=== PATIENT | female | born 1975 | race African-American/Black ===

== ENCOUNTER 2018-03-25 10:46 | Inpatient (IN) | payer OTHER ==
[2018-03-25 11:33] VITALS: BMI 31.7
--- NOTE | 2018-03-25 13:43 | HP ---
COWS - Scale Resting Pulse: 1= [place] 81-100 Sweatin=Flushed/Facial Moisture Restless Observation: 1= Difficult to Sit Still Pupil Size: 2= Moderately Dilated Bone or Joint Aches: 2= Severe Diffuse Aches Runny Nose/ Eye Tearin= None GI Upset > 30mins: 2= Nausea/Diarrhea Tremor Observation: 1= Tremor [place], Not Seen Yawning Observation: 0= None Anxiety or Irritability: 2=Irritable/Anxious Goose Flesh Skin: 0=Smooth Skin COWS Score: 13 CIWA Score Nausea/Vomitin Muscle Tremors: 2 Anxiety: 3 Agitation: 2 Paroxysmal Sweats: 2 Orientation: 1-Uncertain about Date Tacttile Disturbances: 2-Mild Itch/Numbness/Burn Auditory Disturbances: 0-None Visual Disturbances: 0-None Headache: 2-Mild CIWA-Ar Total Score: 16 - Admission Criteria [facility] Guidelines: Admission for Medically Managed Detox: Requires at least one of the followin. CIWA greater than 12 2. Seizures within the past 24 hours 3. Delirium tremens within the past 24 hours 4. Hallucinations within the past 24 hours 5. Acute intervention needed for co occurring medical disorder 6. Acute intervention needed for co occurring psychiatric disorder 7. Severe withdrawal that cannot be handled at a lower level of care (continued vomiting, continued diarrhea, abnormal vital signs) requiring intravenous medication and/or fluids 8. Admission [facility] Chief Complaint: Heroin/Etoh withdrawal sx Allergies/Adverse Reactions: Allergies Allergy/AdvReac Type Severity Reaction Status Date / Time No Known Allergies Allergy Verified 03/25/18 12:02 History of Present Illness: PATIENT PRESENTS WITH HEROIN/ETOH WITHDRAWAL SX. THIS IS PATIENTS FIRST ADMISSION AT [facility] AND STATES SHE BEGAN SNIFFING HEROIN X ONE YEAR. SNIFFS 10 BAGS DAILY AND LAST TIME SHE SNIFFED WAS LAST NIGHT. PATIENT ALSO DRINKS 5 PINTS OF LIQUOR DAILY SINCE AGE 13. LAST DRINK WAS LAST NIGHT. DENIES H/O OVERDOSE, SEIZURES, BLACKOUTS AND FALL. PMH INCLUDES HTN, HIV+ AND ASTHMA. NON- COMPLIANT WITH ALL MEDS. DENIES SI/HI AND SUICIDE ATTEMPTS. Exam Limitations: No Limitations - Ebola screening Have you traveled outside of the country in the last 21 days: No Have you had contact with anyone from an Ebola affected area: No Have you been sick,other than usual withdrawal symptoms: No Do you have a fever: No - Review of Systems Constitutional: Chills, Night Sweats, Changes in sleep EENT: reports: No Symptoms Reported Respiratory: reports: No Symptoms reported Cardiac: reports: No Symptoms Reported GI: reports: Diarrhea, Nausea, Poor Fluid Intake, Abdominal cramping : reports: No Symptoms Reported Musculoskeletal: reports: Back Pain, Joint Pain, Muscle Pain Integumentary: reports: Sweating Neuro: reports: Headache, Numbness, Tingling, Tremors Endocrine: reports: No Symptoms Reported Hematology: reports: No Symptoms Reported Psychiatric: reports: Orientated x3, Anxious Patient History - Patient Medical History Hx Anemia: No Hx Asthma: Yes Hx Chronic Obstructive Pulmonary Disease (COPD): No Hx Cancer: No Hx Cardiac Disorders: No Hx Congestive Heart Failure: No Hx Hypertension: Yes (non compliant with meds.) Hx Hypercholesterolemia: No Hx Pacemaker: No HX Cerebrovascular Accident: No Hx Seizures: No Hx Dementia: No Hx Diabetes: No Hx Gastrointestinal Disorders: No Hx Liver Disease: No Hx Genitourinary Disorders: No Hx Sexually Transmitted Disorders: No Hx Renal Disease (ESRD): No Hx Thyroid Disease: No Hx Human Immunodeficiency Virus (HIV): Yes (noncompliant with meds) Hx Hepatitis C: No Hx Depression: No Hx Suicide Attempt: No Hx Bipolar Disorder: No Hx Schizophrenia: No - Patient Surgical History Past Surgical History: No Anesthesia Reaction: No - PPD History Previous Implant?: Yes Documented Results: Negative w/o proof Implanted On Prior [facility] Admission?: No PPD to be Administered?: Yes - Reproductive History Last Menstrual Period: 03/18/18 Patient : No - Smoking Cessation Smoking history: Current every day smoker Have you smoked in the past 12 months: Yes Aproximately how many cigarettes per day: 20 Hx Chewing Tobacco Use: No Initiated information on smoking cessation: Yes 'Breaking Loose' booklet given: 03/25/18 - Substance & Tx. History Hx Alcohol Use: Yes Hx Substance Use: Yes Substance Use Type: Alcohol, Cocaine, Heroin Hx Substance Use Treatment: No - Substances Abused Heroin Route: Inhalation Frequency: Daily Amount used: 10 BAGS Age of first use: 42 Date of Last Use: 03/24/18 Crack Route: Smoking Frequency: Daily Amount used: $100 AND UP Age of first use: 15 Date of Last Use: 03/24/18 Alcohol Route: Oral Frequency: Daily Amount used: 1 PINT OF VODKA AND UP Age of first use: 15 Date of Last Use: 03/24/18 Family Disease History - Family Disease History Family History: Denies Admission Physical Exam [facility] - Vital Signs Vital Signs: Vital Signs - 24 hr 03/25/18 11:31 Temperature 98.2 F Pulse Rate 90 Respiratory 18 Rate Blood Pressure 164/106 H - Physical General Appearance: Yes: No Apparent Distress, Appropriately Dressed, Tremorous , Sweating, Anxious HEENTM: Yes: EOMI, Hearing grossly Normal, Normal ENT Inspection, Normocephalic , Normal Voice, SIERRA, Pharynx Normal Respiratory: Yes: Chest Non-Tender, Lungs Clear, Normal Breath Sounds, No Respiratory Distress, No Accessory Muscle Use Neck: Yes: No masses,lesions,Nodules, Supple, Trachea in good position Breast: Yes: Breast Exam Deferred Cardiology: Yes: Regular Rhythm, Regular Rate, S1, S2 Abdominal: Yes: Normal Bowel Sounds, Non Tender, Soft Genitourinary: Yes: Within Normal Limits Back: Yes: Muscle Spasm Musculoskeletal: Yes: full range of Motion, Gait Steady, Back pain, Muscle Pain Extremities: Yes: Normal Inspection, Normal Range of Motion, Tremors Neurological: Yes: it systems manager II-XII NML intact, Alert, Motor Strength 5/5, Disoriented (to date, oriented to name and place), Other (anxious) Integumentary: Yes: Normal Color, Warm, Moist Lymphatic: Yes: Within Normal Limits - Diagnostic (1) Opioid dependence with withdrawal Current Visit: Yes Status: Acute (2) Alcohol dependence with uncomplicated withdrawal Current Visit: Yes Status: Acute (3) HIV positive Current Visit: Yes Status: Chronic (4) Asthma Current Visit: Yes Status: Chronic Qualifiers: Asthma severity: mild Asthma complication type: unspecified Cleared for Admission [facility] - Detox or Rehab [facility] Level of Care: Medically Managed Detox Regimen/Protocol: Methadone/Librium [facility] Breath Alcohol Content Breath Alcohol Content: 0 Urine Pregancy Test - Result Urine Test Results: Negative- NO Line Present Urine Drug Screen - Results Drug Screen Negative: No Urine Drug Screen Results: SINGH-Cocaine, OPI-Opiates, BZO-Benzodiazepines
[2018-03-25] MEDS ORDERED: ACETAMINOPHEN 325 MG TABLET (FP) PO PRN (13:52)
[2018-03-25] MEDS ORDERED: MAGNESIUM HYDROX 2400MG/30ML ORAL SUSPENSION 30 ML CUP PO PRN (13:52)
[2018-03-25] MEDS ORDERED: P-EPHED 60MG/TRIPROLIDI 2.5MG TABLET PO PRN (13:52)
[2018-03-25] MEDS ORDERED: hydrOXYzine PAMOATE 50 MG CAPSULE (FP) PO PRN (13:52)
[2018-03-25] MEDS ORDERED: MENTHOL/PHENOL 1 EACH UD MM PRN (13:52)
[2018-03-25] MEDS ORDERED: NICOTINE POLACRILEX 2 MG GUM BUC PRN (13:52)
[2018-03-25] MEDS ORDERED: LOPERAMIDE HCL 2 MG CAPSULE PO PRN (13:52)
[2018-03-25] MEDS ORDERED: MAGNESIUM CITRATE 300 ML BOTTLE PO PRN (13:52)
[2018-03-25] MEDS ORDERED: guaiFENesin/D-METHORPHAN HB 10 ML UNIT-DOSE CUPS PO PRN (13:52)
[2018-03-25] MEDS ORDERED: MAG HYDROX/AL HYDROX/SIMETH 30 ML UNIT-DOSE CUP PO PRN (13:52)
[2018-03-25] MEDS ORDERED: ALBUTEROL SO4 8 GM HFA INHALER IH PRN (13:53)
[2018-03-25] MEDS ORDERED: METHADONE HCL 10 MG TABLET (FOR DETOX USE ONLY) PO ONE ×2 (14:35→23:00)
[2018-03-25] MEDS: chlordiazePOXIDE HCL 25 MG CAPSULE PO PRN (15:06)
[2018-03-25] MEDS: IBUPROFEN 400 MG TABLET (FP) PO PRN (15:11)
[2018-03-25] MEDS ORDERED: cloNIDine HCL 0.1 MG TABLET PO PRN (15:19)
--- NOTE | 2018-03-25 15:52 | EKG ---
Test Reason : Blood Pressure : / mmHG Vent. Rate : 086 BPM Atrial Rate : 086 BPM P-R Int : 144 ms QRS Dur : 080 ms QT Int : 372 ms P-R-T Axes : 053 000 038 degrees QTc Int : 445 ms NORMAL SINUS RHYTHM NORMAL ECG NO PREVIOUS ECGS AVAILABLE Confirmed by BRUNA MARTIN, ADALGISA ([id number]) on 03/25/2018 3:52:35 PM Referred By: Confirmed By:ADALGISA MCFARLAND MD
[2018-03-25] MEDS: chlordiazePOXIDE HCL 25 MG CAPSULE PO SCH ×2 (18:00→22:59)
[2018-03-25] MEDS: THIAMINE HCL 100 MG TABLET (FP) PO SCH (22:59)
[2018-03-25] MEDS: MELATONIN 5 MG TABLETS PO PRN (23:01)
[2018-03-26 01:57] LABS: URINE APPEARANCE CLOUDY; URINE BILIRUBIN NEGATIVE (<2.0 mg/dL); URINE GLUCOSE (UA) NEGATIVE (NEGATIVE); URINE KETONE NEGATIVE (NEGATIVE); URINE LEUK ESTERASE NEGATIVE (NEGATIVE); URINE NITRITE POSITIVE (NEGATIVE); URINE PROTEIN 3+ (NEGATIVE); URINE UROBILINOGEN NEGATIVE mg/dL (0.2-1.0)
[2018-03-26 01:59] LABS: URINE COLOR YELLOW
[2018-03-26 02:45] LABS: CALCIUM OXALATE CRYSTALS MODERATE /hpf (NONE SEEN); EPI CELLS MODERATE /HPF (FEW); URINE BACTERIA FEW /hpf (NONE SEEN); URINE MUCUS RARE
[2018-03-26] MEDS: chlordiazePOXIDE HCL 25 MG CAPSULE PO SCH ×4 (06:29→22:26)
--- NOTE | 2018-03-26 09:29 | PN ---
S CIWA - CIWA Score Nausea/Vomitin-Mild Nausea/No Vomiting Muscle Tremors: 4-Moderate,w/Arms Extend Anxiety: 1-Mildly Anxious Agitation: 2 Paroxysmal Sweats: 1-Minimal Palms Moist Orientation: 1-Uncertain about Date Tacttile Disturbances: 0-None Auditory Disturbances: 0-None Visual Disturbances: 0-None Headache: 2-Mild CIWA-Ar Total Score: 12 BHS COWS - Scale Resting Pulse: 1= [place] 81-100 Sweatin= Chills/Flushing Restless Observation: 0= Sits Still Pupil Size: 0= Normal to Room Light Bone or Joint Aches: 1= Mild Discomfort Runny Nose/ Eye Tearin= Nasal Congestion GI Upset > 30mins: 1= Stomach Cramp Tremor Observation of Outstretched Hands: 2= Slight Tremor Visible Yawning Observation: 1= 1-2x During Session Anxiety or Irritability: 2=Irritable/Anxious Goose Flesh Skin: 0=Smooth Skin COWS Score: 10 S Progress Note (SOAP) Subjective: irritable anxiety restlessness tremor body aches sweating Objective: 03/26/18 09:27 Vital Signs Temperature 98.8 F 03/26/18 09:20 Pulse Rate 77 03/26/18 09:20 Respiratory Rate 18 03/26/18 09:20 Blood Pressure 135/87 03/26/18 09:20 O2 Sat by Pulse Oximetry (%) Laboratory Last Values Urine Color Yellow 03/25/18 22:27 Urine Appearance Cloudy 03/25/18 22:27 Urine pH 6.0 (5.0-8.0) 03/25/18 22:27 Ur Specific [place] 1.024 (1.010-1.035) 03/25/18 22:27 Urine Protein 3+ (NEGATIVE) H 03/25/18 22:27 Urine Glucose (UA) Negative (NEGATIVE) 03/25/18 22:27 Urine Ketones Negative (NEGATIVE) 03/25/18 22:27 Urine Blood Negative (NEGATIVE) 03/25/18 22:27 Urine Nitrite Positive (NEGATIVE) 03/25/18 22:27 Urine Bilirubin Negative (<2.0 mg/dL) 03/25/18 22:27 Urine Urobilinogen Negative mg/dL (0.2-1.0) 03/25/18 22:27 Ur Leukocyte Esterase Negative (NEGATIVE) 03/25/18 22:27 Urine WBC (Auto) 8 /hpf (3-5) 03/25/18 22:27 Urine RBC (Auto) 2 /hpf (0-3) 03/25/18 22:27 Ur Epithelial Cells Moderate /HPF (FEW) 03/25/18 22:27 Calcium Oxalate Crystal Moderate /hpf (NONE SEEN) 03/25/18 22:27 Urine Bacteria Few /hpf (NONE SEEN) 03/25/18 22:27 Urine Mucus Rare 03/25/18 22:27 lab noted Assessment: 03/26/18 09:28 alcohol and opiate withdrawal sx Plan: continue detox
[2018-03-26] MEDS ORDERED: METHADONE HCL 10 MG TABLET (FOR DETOX USE ONLY) PO SCH (10:00)
[2018-03-26 10:10] LABS: HEMATOCRIT 37.2 % (32.4-45.2); HEMOGLOBIN 12.5 GM/dL (10.7-15.3); MCH 24.9 pg (25.7-33.7); MCHC 33.7 g/dl (32.0-36.0); MEAN CELL VOLUME 73.9 fl (80-96); MEAN PLT VOLUME 10.7 fl (7.5-11.1); PLATELET COUNT 187 K/MM3 (134-434); RBC 5.03 M/mm3 (3.60-5.2); WHITE BLOOD COUNT 2.8 K/mm3 (4.0-10.0)
[2018-03-26] MEDS: PRENATAL VITAMINS W/ FOLIC ACID TABLET (FP) PO SCH (10:44)
[2018-03-26] MEDS: NICOTINE 21 MG/24 HOURS TOPICAL PATCH TD SCH (10:47)
[2018-03-26 11:15] LABS: ALBUMIN 3.4 g/dl (3.4-5.0); ALK PHOS 54 U/L (45-117); ANION GAP 10 MMOL/L (8-16); BILIRUBIN,TOTAL 0.8 mg/dL (0.2-1); BLOOD UREA NITROGEN 10 mg/dL (7-18); CALCIUM 8.9 mg/dL (8.5-10.1); CHLORIDE 108 mmol/L (98-107); CO2 27 mmol/L (21-32); CREATININE 0.8 mg/dL (0.55-1.3); GLUCOSE,RANDOM 114 mg/dL (74-106); POTASSIUM 3.2 mmol/L (3.5-5.1); SGOT/AST 13 U/L (15-37); SGPT/ALT 15 U/L (13-61); SODIUM 145 mmol/L (136-145); TOT PROT 7.3 g/dl (6.4-8.2)
[2018-03-26] MEDS: THIAMINE HCL 100 MG TABLET (FP) PO SCH (22:26)
[2018-03-26] MEDS: MELATONIN 5 MG TABLETS PO PRN (22:57)
[2018-03-26] MEDS: chlordiazePOXIDE HCL 25 MG CAPSULE PO PRN (22:57)
[2018-03-27] MEDS: chlordiazePOXIDE HCL 25 MG CAPSULE PO SCH ×2 (06:02→10:38)
[2018-03-27] MEDS: PRENATAL VITAMINS W/ FOLIC ACID TABLET (FP) PO SCH (10:38)
[2018-03-27] MEDS: METHADONE HCL 5 MG TABLET (FOR DETOX USE ONLY) PO SCH (10:38)
[2018-03-27] MEDS: NICOTINE 21 MG/24 HOURS TOPICAL PATCH TD SCH (10:43)
[2018-03-27] MEDS ORDERED: CYCLOBENZAPRINE HCL 10 MG TABLET (FP) PO PRN (14:35)
--- NOTE | 2018-03-27 17:01 | PN ---
S CIWA - CIWA Score Nausea/Vomitin-No Nausea/No Vomiting Muscle Tremors: 3 Anxiety: 3 Agitation: 0-Normal Activity Paroxysmal Sweats: 3 Orientation: 2-Disoriented Date<2 days Tacttile Disturbances: 2-Mild Itch/Numbness/Burn Auditory Disturbances: 0-None Visual Disturbances: 0-None Headache: 2-Mild CIWA-Ar Total Score: 15 BHS COWS - Scale Resting Pulse: 1= [place] 81-100 Sweatin= Chills/Flushing Restless Observation: 0= Sits Still Pupil Size: 0= Normal to Room Light Bone or Joint Aches: 2= Severe Diffuse Aches Runny Nose/ Eye Tearin= None GI Upset > 30mins: 2= Nausea/Diarrhea Tremor Observation of Outstretched Hands: 2= Slight Tremor Visible Yawning Observation: 1= 1-2x During Session Anxiety or Irritability: 2=Irritable/Anxious Goose Flesh Skin: 0=Smooth Skin COWS Score: 11 BHS Progress Note (SOAP) Subjective: Body Aches, Sweating, Tremors, H/A, Diarrhea, Stomach Cramping. Objective: PATIENT A & O X 2 (UNCERTAIN ABOUT CURRENT DAY / DATE). PATIENT OBSERVED AMBULATING ON UNIT. IN NO ACUTE DISTRESS. 03/27/18 16:58 Vital Signs Temperature 98.8 F 03/27/18 13:25 Pulse Rate 89 03/27/18 13:25 Respiratory Rate 18 03/27/18 13:25 Blood Pressure 159/103 H 03/27/18 13:25 O2 Sat by Pulse Oximetry (%) Laboratory Tests 03/25/18 03/26/18 03/26/18 22:27 05:50 05:50 WBC 2.8 L RBC 5.03 Hgb 12.5 Hct 37.2 MCV 73.9 L MCH 24.9 L MCHC 33.7 RDW 17.0 H Plt Count 187 MPV 10.7 Sodium 145 Potassium 3.2 L Chloride 108 H Carbon Dioxide 27 Anion Gap 10 BUN 10 Creatinine 0.8 Creat Clearance w eGFR > 60 Random Glucose 114 H Calcium 8.9 Total Bilirubin 0.8 AST 13 L ALT 15 Alkaline Phosphatase 54 Total Protein 7.3 Albumin 3.4 Urine Color Yellow Urine Appearance Cloudy Urine pH 6.0 Ur Specific [place] 1.024 Urine Protein 3+ H Urine Glucose (UA) Negative Urine Ketones Negative Urine Blood Negative Urine Nitrite Positive Urine Bilirubin Negative Urine Urobilinogen Negative Ur Leukocyte Esterase Negative Urine WBC (Auto) 8 Urine RBC (Auto) 2 Ur Epithelial Cells Moderate Calcium Oxalate Crystal Moderate Urine Bacteria Few Urine Mucus Rare RPR Titer 03/26/18 05:50 WBC RBC Hgb Hct MCV MCH MCHC RDW Plt Count MPV Sodium Potassium Chloride Carbon Dioxide Anion Gap BUN Creatinine Creat Clearance w eGFR Random Glucose Calcium Total Bilirubin AST ALT Alkaline Phosphatase Total Protein Albumin Urine Color Urine Appearance Urine pH Ur Specific [place] Urine Protein Urine Glucose (UA) Urine Ketones Urine Blood Urine Nitrite Urine Bilirubin Urine Urobilinogen Ur Leukocyte Esterase Urine WBC (Auto) Urine RBC (Auto) Ur Epithelial Cells Calcium Oxalate Crystal Urine Bacteria Urine Mucus RPR Titer Nonreactive LABS NOTED. Assessment: 03/27/18 16:58 WITHDRAWAL SYMPTOMS. Plan: CONTINUE DETOX. INCREASE DAILY PO FLUID INTAKE. REPEAT UA FOR ELEVATED ADMISSION PROTEIN LEVEL. K-DUR, 20 MEQ PO BID.
[2018-03-27] MEDS: POTASSIUM CHLORIDE TABS 20 MEQ TABLET.ER (FP) PO SCH (17:11)
[2018-03-27] MEDS: chlordiazePOXIDE 5 MG CAPSULE PO SCH ×2 (17:11→22:10)
[2018-03-27] MEDS: THIAMINE HCL 100 MG TABLET (FP) PO SCH (22:10)
[2018-03-27 23:31] LABS: URINE APPEARANCE CLEAR; URINE BILIRUBIN NEGATIVE (<2.0 mg/dL); URINE COLOR STRAW; URINE GLUCOSE (UA) NEGATIVE (NEGATIVE); URINE KETONE NEGATIVE (NEGATIVE); URINE LEUK ESTERASE NEGATIVE (NEGATIVE); URINE NITRITE NEGATIVE (NEGATIVE); URINE PROTEIN NEGATIVE (NEGATIVE); URINE UROBILINOGEN NEGATIVE mg/dL (0.2-1.0)
[2018-03-28] MEDS: chlordiazePOXIDE 5 MG CAPSULE PO SCH ×2 (05:58→10:43)
[2018-03-28] MEDS: NICOTINE 21 MG/24 HOURS TOPICAL PATCH TD SCH (10:39)
[2018-03-28] MEDS: IBUPROFEN 400 MG TABLET (FP) PO PRN (10:41)
[2018-03-28] MEDS: PRENATAL VITAMINS W/ FOLIC ACID TABLET (FP) PO SCH (10:43)
[2018-03-28] MEDS: METHADONE HCL 5 MG TABLET (FOR DETOX USE ONLY) PO SCH (10:43)
[2018-03-28] MEDS: POTASSIUM CHLORIDE TABS 20 MEQ TABLET.ER (FP) PO SCH ×2 (10:43→17:58)
[2018-03-28] MEDS ORDERED: cloNIDine HCL 0.1 MG TABLET PO ONE (15:55)
--- NOTE | 2018-03-28 15:59 | PN ---
BHS Progress Note (SOAP) Subjective: Interrupted Sleep, Anxious, Diarrhea, Body Aches, Sweating. Objective: PATIENT A & O X 3, OBSERVED AMBULATING ON UNIT. IN NO ACUTE DISTRESS. 03/28/18 15:56 Vital Signs Temperature 98.2 F 03/28/18 14:04 Pulse Rate 85 03/28/18 14:04 Respiratory Rate 18 03/28/18 14:04 Blood Pressure 143/97 03/28/18 14:04 O2 Sat by Pulse Oximetry (%) Laboratory Tests 03/25/18 03/26/18 03/26/18 22:27 05:50 05:50 WBC 2.8 L RBC 5.03 Hgb 12.5 Hct 37.2 MCV 73.9 L MCH 24.9 L MCHC 33.7 RDW 17.0 H Plt Count 187 MPV 10.7 Sodium 145 Potassium 3.2 L Chloride 108 H Carbon Dioxide 27 Anion Gap 10 BUN 10 Creatinine 0.8 Creat Clearance w eGFR > 60 Random Glucose 114 H Calcium 8.9 Total Bilirubin 0.8 AST 13 L ALT 15 Alkaline Phosphatase 54 Total Protein 7.3 Albumin 3.4 Urine Color Yellow Urine Appearance Cloudy Urine pH 6.0 Ur Specific [place] 1.024 Urine Protein 3+ H Urine Glucose (UA) Negative Urine Ketones Negative Urine Blood Negative Urine Nitrite Positive Urine Bilirubin Negative Urine Urobilinogen Negative Ur Leukocyte Esterase Negative Urine WBC (Auto) 8 Urine RBC (Auto) 2 Ur Epithelial Cells Moderate Calcium Oxalate Crystal Moderate Urine Bacteria Few Urine Mucus Rare RPR Titer 03/26/18 03/27/18 05:50 17:18 WBC RBC Hgb Hct MCV MCH MCHC RDW Plt Count MPV Sodium Potassium Chloride Carbon Dioxide Anion Gap BUN Creatinine Creat Clearance w eGFR Random Glucose Calcium Total Bilirubin AST ALT Alkaline Phosphatase Total Protein Albumin Urine Color Straw Urine Appearance Clear Urine pH 7.0 Ur Specific [place] 1.011 Urine Protein Negative Urine Glucose (UA) Negative Urine Ketones Negative Urine Blood Negative Urine Nitrite Negative Urine Bilirubin Negative Urine Urobilinogen Negative Ur Leukocyte Esterase Negative Urine WBC (Auto) Urine RBC (Auto) Ur Epithelial Cells Calcium Oxalate Crystal Urine Bacteria Urine Mucus RPR Titer Nonreactive LABS NOTED. RESULTS OF REPEAT UA NOTED. NO NEED FOR FURTHER ACTION AT THIS TIME. 03/28/18 15:58 Assessment: 03/28/18 15:57 WITHDRAWAL SYMPTOMS. LEUKOPENIA. HYPOKALEMIA. 03/28/18 15:58 Plan: CONTINUE DETOX. CONTINUE K-DUR. CLONIDINE, 0.1 MG PO X 1 FOR ELEVATED BLOOD PRESSURE AND FOR SEVERE WITHDRAWAL SYMPTOMS.
[2018-03-28] MEDS: chlordiazePOXIDE HCL 10 MG CAPSULE PO SCH ×2 (17:58→23:01)
[2018-03-28] MEDS: THIAMINE HCL 100 MG TABLET (FP) PO SCH (23:01)
[2018-03-28] MEDS: MELATONIN 5 MG TABLETS PO PRN (23:02)
[2018-03-29] MEDS: IBUPROFEN 400 MG TABLET (FP) PO PRN (03:43)
[2018-03-29] MEDS: chlordiazePOXIDE HCL 10 MG CAPSULE PO SCH ×2 (06:06→11:08)
[2018-03-29] MEDS ORDERED: METHADONE HCL 10 MG TABLET (FOR DETOX USE ONLY) PO SCH (10:00)
[2018-03-29] MEDS: PRENATAL VITAMINS W/ FOLIC ACID TABLET (FP) PO SCH (11:09)
[2018-03-29] MEDS: POTASSIUM CHLORIDE TABS 20 MEQ TABLET.ER (FP) PO SCH ×2 (11:09→17:12)
[2018-03-29] MEDS: NICOTINE 21 MG/24 HOURS TOPICAL PATCH TD SCH (11:09)
--- NOTE | 2018-03-29 17:57 | PN ---
BHS Progress Note (SOAP) Subjective: Tingling in hands, agitation, chills, sweating, interrupted sleep Objective: 03/29/18 17:55 Last Vital Signs Temp Pulse Resp BP Pulse Ox 98.7 F 84 18 118/77 03/29/18 15:06 03/29/18 15:06 03/29/18 15:06 03/29/18 15:06 Laboratory Tests 03/25/18 03/26/18 03/26/18 22:27 05:50 05:50 WBC 2.8 L RBC 5.03 Hgb 12.5 Hct 37.2 MCV 73.9 L MCH 24.9 L MCHC 33.7 RDW 17.0 H Plt Count 187 MPV 10.7 Sodium 145 Potassium 3.2 L Chloride 108 H Carbon Dioxide 27 Anion Gap 10 BUN 10 Creatinine 0.8 Creat Clearance w eGFR > 60 Random Glucose 114 H Calcium 8.9 Total Bilirubin 0.8 AST 13 L ALT 15 Alkaline Phosphatase 54 Total Protein 7.3 Albumin 3.4 Urine Color Yellow Urine Appearance Cloudy Urine pH 6.0 Ur Specific [place] 1.024 Urine Protein 3+ H Urine Glucose (UA) Negative Urine Ketones Negative Urine Blood Negative Urine Nitrite Positive Urine Bilirubin Negative Urine Urobilinogen Negative Ur Leukocyte Esterase Negative Urine WBC (Auto) 8 Urine RBC (Auto) 2 Ur Epithelial Cells Moderate Calcium Oxalate Crystal Moderate Urine Bacteria Few Urine Mucus Rare RPR Titer 03/26/18 03/27/18 05:50 17:18 WBC RBC Hgb Hct MCV MCH MCHC RDW Plt Count MPV Sodium Potassium Chloride Carbon Dioxide Anion Gap BUN Creatinine Creat Clearance w eGFR Random Glucose Calcium Total Bilirubin AST ALT Alkaline Phosphatase Total Protein Albumin Urine Color Straw Urine Appearance Clear Urine pH 7.0 Ur Specific [place] 1.011 Urine Protein Negative Urine Glucose (UA) Negative Urine Ketones Negative Urine Blood Negative Urine Nitrite Negative Urine Bilirubin Negative Urine Urobilinogen Negative Ur Leukocyte Esterase Negative Urine WBC (Auto) Urine RBC (Auto) Ur Epithelial Cells Calcium Oxalate Crystal Urine Bacteria Urine Mucus RPR Titer Nonreactive Labs reviewed: [place] 3.2 Assessment: 03/29/18 17:56 Withdrawal symptoms Hypokalemia noted Plan: Continue detox Encouraged PO water hydration Hypokalemia: replenished
[2018-03-29] MEDS: THIAMINE HCL 100 MG TABLET (FP) PO SCH (22:35)
[2018-03-30] MEDS ORDERED: METHADONE HCL 5 MG TABLET (FOR DETOX USE ONLY) PO SCH (06:00)
[2018-03-30 06:20] VITALS: BP 114/70; PULSE 94; TEMP 97.6
--- NOTE | 2018-03-30 11:55 | DS ---
[facility] Detox Discharge Summary Admission Date: 03/25/18 Discharge Date: 03/30/18 - History Present History: Opioid Dependence Additional Comments: 43 years old female admitted on 03/25/18 for opiate withdrawal stabilization completed detox regimen alert no acute distress [facility] - Physical Exam Results Vital Signs: Vital Signs Temperature 97.6 F 03/30/18 06:19 Pulse Rate 94 H 03/30/18 06:19 Respiratory Rate 18 03/30/18 06:19 Blood Pressure 114/70 03/30/18 06:19 O2 Sat by Pulse Oximetry (%) Pertinent Admission Physical Exam Findings: opiate withdrawal sx Laboratory Laboratory Last Values WBC 2.8 K/mm3 (4.0-10.0) L 03/26/18 05:50 RBC 5.03 M/mm3 (3.60-5.2) 03/26/18 05:50 Hgb 12.5 GM/dL (10.7-15.3) 03/26/18 05:50 Hct 37.2 % (32.4-45.2) 03/26/18 05:50 MCV 73.9 fl (80-96) L 03/26/18 05:50 MCH 24.9 pg (25.7-33.7) L 03/26/18 05:50 MCHC 33.7 g/dl (32.0-36.0) 03/26/18 05:50 RDW 17.0 % (11.6-15.6) H 03/26/18 05:50 Plt Count 187 K/MM3 (134-434) 03/26/18 05:50 MPV 10.7 fl (7.5-11.1) 03/26/18 05:50 Sodium 145 mmol/L (136-145) 03/26/18 05:50 Potassium 3.2 mmol/L (3.5-5.1) L 03/26/18 05:50 Chloride 108 mmol/L (98-107) H 03/26/18 05:50 Carbon Dioxide 27 mmol/L (21-32) 03/26/18 05:50 Anion Gap 10 MMOL/L (8-16) 03/26/18 05:50 BUN 10 mg/dL (7-18) 03/26/18 05:50 Creatinine 0.8 mg/dL (0.55-1.3) 03/26/18 05:50 Creat Clearance w eGFR > 60 (>60) 03/26/18 05:50 Random Glucose 114 mg/dL (74-106) H 03/26/18 05:50 Calcium 8.9 mg/dL (8.5-10.1) 03/26/18 05:50 Total Bilirubin 0.8 mg/dL (0.2-1) 03/26/18 05:50 AST 13 U/L (15-37) L 03/26/18 05:50 ALT 15 U/L (13-61) 03/26/18 05:50 Alkaline Phosphatase 54 U/L (45-117) 03/26/18 05:50 Total Protein 7.3 g/dl (6.4-8.2) 03/26/18 05:50 Albumin 3.4 g/dl (3.4-5.0) 03/26/18 05:50 Urine Color Straw 03/27/18 17:18 Urine Appearance Clear 03/27/18 17:18 Urine pH 7.0 (5.0-8.0) 03/27/18 17:18 Ur Specific [place] 1.011 (1.010-1.035) 03/27/18 17:18 Urine Protein Negative (NEGATIVE) 03/27/18 17:18 Urine Glucose (UA) Negative (NEGATIVE) 03/27/18 17:18 Urine Ketones Negative (NEGATIVE) 03/27/18 17:18 Urine Blood Negative (NEGATIVE) 03/27/18 17:18 Urine Nitrite Negative (NEGATIVE) 03/27/18 17:18 Urine Bilirubin Negative (<2.0 mg/dL) 03/27/18 17:18 Urine Urobilinogen Negative mg/dL (0.2-1.0) 03/27/18 17:18 Ur Leukocyte Esterase Negative (NEGATIVE) 03/27/18 17:18 Urine WBC (Auto) 8 /hpf (3-5) 03/25/18 22:27 Urine RBC (Auto) 2 /hpf (0-3) 03/25/18 22:27 Ur Epithelial Cells Moderate /HPF (FEW) 03/25/18 22:27 Calcium Oxalate Crystal Moderate /hpf (NONE SEEN) 03/25/18 22:27 Urine Bacteria Few /hpf (NONE SEEN) 03/25/18 22:27 Urine Mucus Rare 03/25/18 22:27 RPR Titer Nonreactive (NONREACTIVE) 03/26/18 05:50 lab noted low potassium follow up with hiv specialist for low wbc - Treatment Hospital Course: Detox Protocol Followed, Detoxed Safely, Responded well, Discharged Condition Good, Rehab Referral Accepted Patient has Accepted a Rehab Referral to: [facility] specialist - Medication Discharge Medications: Ambulatory Orders Elviteg/Cob/Emtri/Tenofo Disop [Stribild Tablet] 1 each PO DAILY 03/25/18 Albuterol Sulfate Inhaler - [Ventolin HFA Inhaler -] 2 inh PO Q4H PRN #1 inhaler 03/30/18 Potassium Chloride [K-Dur -] 20 meq PO BID@1000,1800 #7 tablet.er 03/30/18 - Diagnosis (1) Hypokalemia Status: Acute (2) Opioid dependence with withdrawal Status: Acute (3) Asthma Status: Chronic Qualifiers: Asthma severity: mild Asthma persistence: intermittent Asthma complication type: with status asthmaticus Qualified Code(s): J45.22 - Mild intermittent asthma with status asthmaticus (4) HIV positive Status: Chronic - AMA Did Patient Leave Against Medical Advice: No
== END 2018-03-30 08:52 | disposition home or self-care (01) | DRG 773 ==
LOC: YASAS 10:46 → Y3N 13:33
PROVIDERS: ADMIT Neuromusculoskeletal Medicine & OMM; ATTEND Neuromusculoskeletal Medicine & OMM
PROC: HZ2ZZZZ Detoxification Services for Substance Abuse Treatment (ICD-10-PCS; principal; 2018-03-25)
DX: F11.23 Opioid dependence with withdrawal (principal); F10.230 Alcohol dependence with withdrawal, uncomplicated; F17.210 Nicotine dependence, cigarettes, uncomplicated; I10 Essential (primary) hypertension; E87.6 Hypokalemia; J45.22 Mild intermittent asthma with status asthmaticus; Z21 Asymptomatic human immunodeficiency virus [HIV] infection status; D72.819 Decreased white blood cell count, unspecified; Z91.14 Patient's other noncompliance with medication regimen
CPT/HCPCS: 36415; 80053; 81003; 81015; 85027; 86593; 93005; 93010; J0735